=== PATIENT | male | born 1985 | race Two or more races ===

== ENCOUNTER 2019-06-04 13:58 | Emergency (ER) | payer OTHER ==
[~2019-06-04] VITALS: Ht 182.9 cm; Wt 99.8 kg
[2019-06-04 13:58] VITALS: BP 132/77
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
[2019-06-04 14:32] VITALS: BP 128/70
--- NOTE | 2019-06-04 14:32 | NUR ---
ER DISCHARGE NOTE: Patient is cleared to be discharged per ERMD, pt is aox4, on room air, with stable vital signs. pt was given dc instructions, pt was able to verbalize understanding, pt id band removed without complications. pt is able to ambulate with steady gait. pt took all belongings and left with [employer].
== END 2019-06-04 14:32 ==
LOC: EDBD 13:58 → EMR 14:30
DX: S82.891A Other fracture of right lower leg, initial encounter for closed fracture (principal); M54.2 Cervicalgia; M25.531 Pain in right wrist; Y09 Assault by unspecified means
CPT/HCPCS: 99282